=== PATIENT | female | born 1970 | race American Indian/Alaskan Native ===

== ENCOUNTER 2022-04-19 11:04 | Inpatient (IN) | payer MEDICARE ==
[2022-04-19] MEDS ORDERED: METOCLOPRAMIDE 10 MG/2 ML INJ IV ONE (11:27)
[2022-04-19] MEDS ORDERED: MORPHINE 4 MG/1 ML INJ IV ONE (11:27)
[2022-04-19] MEDS ORDERED: NITROGLYCERIN 0.4 MG TAB SUBL SL PRN (11:27)
[2022-04-19] MEDS ORDERED: PANTOPRAZOLE 40 MG INJ IV ONE (11:27)
--- NOTE | 2022-04-19 11:30 | Emergency Department Report ---
"ED General Adult HPI - General Chief complaint: Chest Pain Stated complaint: CHEST PAIN/VOMITTING Time Seen by Provider: 04/19/22 11:18 Source: patient, EMS ( EMS documentation not available at time of chart dictation ), RN notes reviewed Mode of arrival: Stretcher Limitations: Physical Limitation - History of Present Illness Initial comments: The patient was evaluated in the emergency department for symptoms described in the history of present illness. He/she was evaluated in the context of the global COVID-19 pandemic, which necessitated consideration that the patient might be at risk for infection with the virus that causes COVID-19. Institut ional protocols and algorithms that pertain to the evaluation of patients at risk for COVID-19 are in a state of rapid change based on information released by regulatory bodies including the CDC and federal and state organizations. These policies and algorithms were followed during the patient's care in the emergency department. Please note that these policies, procedures and recommendations changed on a rapid basis. Primary care doctor: Dr. Eagle Petit Nephrology: Patient does not recall. Past medical history: End-stage renal disease on hemodialysis, Wednesday, , Wednesday, stroke, residual left-sided deficits. Patient does not make urine, also has a history of diabetes, hyperlipidemia, COVID-19, GERD. This patient is a 51-year-old female who presents to the department today with a complaint of diffuse abdominal cramping, nausea and vomiting, and subsequent central and left-sided chest pain. Her symptoms are present since yesterday. The patient denies headache and neck pain. She denies dysuria she does not produce urine. She denies loss of taste and smell. She indicates that she is not . The patient has not had hematemesis or bright red blood per rectu m. -: days(s) Location: chest, abdomen Quality: aching Consistency: constant Improves with: none Worsens with: none - Related Data Allergies Allergy/AdvReac Type Severity Reaction Status Date / Time Penicillins AdvReac Unknown Verified 04/19/22 11:06 ED Review of Systems ROS: Stated complaint: CHEST PAIN/VOMITTING Other details as noted in HPI Constitutional: malaise. denies: fever Eyes: denies: eye discharge ENT: congestion Respiratory: shortness of breath Cardiovascular: chest pain Gastrointestinal: abdominal pain, nausea, vomiting. denies: hematemesis, melena, hematochezia Genitourinary: denies: dysuria Musculoskeletal: denies: back pain Neurological: weakness Psychiatric: anxiety Hematological/Lymphatic: denies: easy bleeding ED Physical Exam - General Limitations: Physical Limitation General appearance: alert, anxious, in distress - Head Head exam: Present: atraumatic, normocephalic - Eye Eye exam: Present: normal appearance, EOMI. Absent: nystagmus - ENT ENT exam: Present: normal exam, normal orophraynx, mucous membranes moist, normal external ear exam - Neck Neck exam: Present: normal inspection, full ROM. Absent: tenderness, meningismus - Respiratory Respiratory exam: Present: decreased breath sounds. Absent: respiratory distress, rhonchi, stridor - Cardiovascular Cardiovascular Exam: Present: regular rate, normal rhythm, JVD. Absent: bradycardia, tachycardia, irregular rhythm, systolic murmur, diastolic murmur, rubs, gallop - GI/Abdominal GI/Abdominal exam: Present: soft, tenderness (Mild diffuse abdominal tenderness). Absent: distended, guarding, rebound, rigid, pulsatile mass - Extremities Exam Extremities exam: Present: normal inspection (There is a left upper extremity fistula, with an appropriate thrill, without redness, pus or streaking. There is a right upper extremity nonfunctioning graft.), full ROM, pedal edema ( 2+ edema noted in the bilateral lower extremities), other (2+ pulses noted in the bilateral upper and lower extremities. There is no palpable cord. negative Homans sign. Muscular compartments are soft. The pelvis is stable.). Absent: calf tenderness - Back Exam Back exam: Present: normal inspection. Absent: tenderness, CVA tenderness (R), CVA tenderness (L), paraspinal tenderness, vertebral tenderness - Neurological Exam Neurological exam: Present: alert, motor sensory deficit (Is chronic left-sided weakness), other (There is no facial droop. The tongue is midline. EOMI. Sensation is intact to light touch in 4 extremities. 5/5 strength right arm and right leg.) - Psychiatric Psychiatric exam: Present: anxious - Skin Skin exam: Present: warm, dry, intact, normal color. Absent: rash ED Course Vital Signs 04/19/22 04/19/22 04/19/22 11:41 11:46 11:54 Temperature 99.2 F Pulse Rate 89 Respiratory 15 Rate Blood Pressure 139/76 Blood Pressure [Right] O2 Sat by Pulse 89 91 97 Oximetry 04/19/22 04/19/22 12:00 12:27 Temperature Pulse Rate 89 Respiratory 18 Rate Blood Pressure Blood Pressure 198/95 [Right] O2 Sat by Pulse 90 94 Oximetry - Reevaluation(s) Reevaluation #1: 04/19/22 12:40 Differential diagnosis, include not limited to: Obstruction, colitis, diverticulitis, appendicitis, acute coronary syndrome, pulmonary embolism, pneumonia, congestive heart failure, azotemia, uremia Assessment and plan: 51-year-old female, who does not produce urine, with acute hypoxic respiratory failure, hypertensive urgency, and a complaint of diffuse abdominal pain, with nausea and vomiting, and subsequent chest pain. Placed patient on gambling monitor, start appropriate therapies, including labetalol for hypertensive urgency, administer supplemental oxygen. She has JVD , and x-ray of the chest suggest pulmonary opacities, which I suspect are more likely secondary to fluid overload, rather than pneumonia. However, obtain CT scan of the chest abdomen pelvis to better differentiate. Treat symptoms aggressively. Have reached out to her private primary care doctor, Dr. Petit. Have requested name of her treating sock lining stitcher, in order to establish if the sock lining stitcher comes to our hospital for continuity of care. Patient also will obtain VQ scan to assess for pulmonary embolism, although I think a PE is less likely at this point in time. Patient difficult IV stick, not able to establish 20-gauge IV in the upper extremities, therefore, 20-gauge EJ is placed by myself in the left EJ without difficulty. All questions answered. 04/19/22 13:36 Dr Petit calls back Does not have the name of the private sock lining stitcher, but reports that patient goes to the following location. We will therefore discussed with our nephrology on-call. [facility] | [id number] [facility] [address] [place] [address] 04/19/22 14:55 CT scan chest suggest congestive heart failure. CT scan abdomen pelvis suggests fecal impaction with constipation. Aspirin ordered. Soapsuds enema ordered. Nephrology at the bedside to evaluate the patient. Hospital physician, Dr. Elin Savage to admit to IMS - Consultations Consultation #1: 04/19/22 13:45 Discussed the patient's history, physical, laboratory studies and imaging studies and clinical impression with nephrology on-call, Dr. Lo Smlals He will follow in consultation and arrange for hemodialysis - EJ/Peripheral Line Neck L Time Out Performed: Yes Indications: nurses unable to establis Skin Cleansed in Sterile Fashion: Yes Size: 20 Dressing Placed: Tegaderm Patient Tolerated Procedure: well ED Medical Decision Making - Lab Data Result diagrams: 04/19/22 12:35 04/19/22 12:35 Vital Signs 04/19/22 04/19/22 04/19/22 11:41 11:46 11:54 Temperature 99.2 F Pulse Rate 89 Respiratory 15 Rate Blood Pressure 139/76 Blood Pressure [Right] O2 Sat by Pulse 89 91 97 Oximetry 04/19/22 04/19/22 12:00 12:27 Temperature Pulse Rate 89 Respiratory 18 Rate Blood Pressure Blood Pressure 198/95 [Right] O2 Sat by Pulse 90 94 Oximetry Lab Results 04/19/22 04/19/22 04/19/22 Range/Units 12:35 12:35 12:35 WBC 5.8 (4.5-11.0) K/mm3 RBC 4.32 (3.65-5.03) M/mm3 Hgb 14.1 (10.1-14.3) gm/dl Hct 43.6 H (30.3-42.9) % MCV 101 H (79-97) fl MCH 33 H (28-32) pg MCHC 32 (30-34) % RDW 16.8 H (13.2-15.2) % Plt Count 82 L (140-440) K/mm3 Lymph % (Auto) 8.9 L (13.4-35.0) % [place] % (Auto) 4.7 (0.0-7.3) % Eos % (Auto) 1.3 (0.0-4.3) % Baso % (Auto) 0.6 (0.0-1.8) % Lymph # (Auto) 0.5 L (1.2-5.4) K/mm3 [place] # (Auto) 0.3 (0.0-0.8) K/mm3 Eos # (Auto) 0.1 (0.0-0.4) K/mm3 Baso # (Auto) 0.0 (0.0-0.1) K/mm3 Seg Neutrophils % 84.5 H (40.0-70.0) % Seg Neutrophils # 4.9 (1.8-7.7) K/mm3 PT 17.9 H (12.2-14.9) Sec. INR 1.28 H (0.87-1.13) D-Dimer 231.62 (0-234) ng/mlDDU Sodium 142 (137-145) mmol/L Potassium 3.3 L (3.6-5.0) mmol/L Chloride 96.9 L (98-107) mmol/L Carbon Dioxide 29 (22-30) mmol/L Anion Gap 19 mmol/L BUN 37 H (7-17) mg/dL Creatinine 5.3 H (0.6-1.2) mg/dL Estimated GFR 9 ml/min BUN/Creatinine Ratio 7 % Glucose 231 H (65-100) mg/dL Calcium 10.1 (8.4-10.2) mg/dL Magnesium 2.20 (1.7-2.3) mg/dL Total Bilirubin 0.50 (0.1-1.2) mg/dL AST 12 (5-40) units/L ALT 8 (7-56) units/L Alkaline Phosphatase 372 H (35-129) units/L Total Creatine Kinase 36 (30-135) units/L Troponin T 0.054 H (0.00-0.029) ng/mL NT-Pro-B Natriuret Pep 77591 H (0-900) pg/mL Total Protein 7.9 (6.3-8.2) g/dL Albumin 4.8 (3.9-5) g/dL Albumin/Globulin Ratio 1.5 % Triglycerides 133 (2-149) mg/dL Cholesterol 119 (50-199) mg/dL LDL Cholesterol Direct 54 (50-130) mg/dL HDL Cholesterol 42 (40-59) mg/dL Cholesterol/HDL Ratio 2.83 % - EKG Data -: EKG Interpreted by Ma EKG shows normal: sinus rhythm Rate: normal - EKG Data When compared to previous EKG there are: previous EKG unavailable 04/19/22 12:36 The EKG is interpreted at 11: 16 Sinus rhythm, rate 95 bpm. Normal axis, normal P wave axis, left ventricular hypertrophy, PVC, first-degree AV block this is an abnormal EKG. This is not a STEMI. There is no prior EKG available for comparison. - Radiology Data Radiology results: pending, report reviewed, image reviewed Chest single view INDICATION: Hypoxemia IMPRESSION: The heart is mildly en larged and there is patchy bilateral airspace disease. Signer Name: Favio Shah MD Signed: 04/19/2022 11:13 AM Workstation Name: [id number] CT CHEST WITH CONTRAST INDICATION / CLINICAL INFORMATION: cp n/v hypoxioa. TECHNIQUE: Axial CT images were obtained through the chest after IV contrast. All CT scans at this location are performed using CT dose reduction for ALARA by means of automated exposure control. COMPARISON: Chest x-ray today FINDINGS: Limited by mild respiratory motion artifact HEART: Enlarged CORONARY ARTERY CALCIFICATION: Present -- Moderate. THORACIC AORTA: Mild atherosclerotic calcification without acute abnormality. MEDIASTINUM / JONNIE: Moderate hiatal hernia No significant abnormality. PLEURA: No pleural effusion. No pneumothorax. LUNGS: Mild patchy bilateral groundglass parenchymal disease characteristic for mild CHF ADDITIONAL FINDINGS: None. UPPER ABDOMEN: No significant abnormality. SKELETAL SYSTEM: No significant abnormality. IMPRESSION: 1. Mild CHF. Signer Name: Osaes Disla MD Signed: 04/19/2022 1:35 PM Workstation Name: [id number] CT ABDOMEN AND PELVIS WITH CONTRAST INDICATION: acute cp hypoxia and acute abd pain. TECHNIQUE: Axial CT images were obtained through the abdomen and pelvis after 100 cc Omni [address] scans at this location are performed using CT dose reduction for ALARA by means of automated exposure control. COMPARISON: None available. FINDINGS: LOWER CHEST: Moderate cardiomegaly. Lung bases clear. LIVER: No significant abnormality. GALLBLADDER: No significant abnormality. BILE DUCTS: No significant abnormality. PANCREAS: No significant abnormality. SPLEEN: No significant abnormality. ADRENALS: No significant abnormality. RIGHT KIDNEY and URETER: Moderate cortical atrophy LEFT KIDNEY and URETER: Moderate cortical atrophy STOMACH and SMALL BOWEL: No significant abnormality. COLON: Large amount of solid stool noted throughout the colon with distention of rectal vault measuring 8 cm with rectal wall thickening and perirectal inflammation characteristic for fecal impaction with stercoral co litis. APPENDIX: No significant abnormality. PERITONEUM: No free fluid. No free air. No fluid collection. LYMPH NODES: No significant adenopathy. AORTA and ARTERIES: Moderate diffuse Monckeberg type vascular calcifications characteristic for diabetes mellitus. IVC and VEINS: No significant abnormality. URINARY BLADDER: No significant abnormality. REPRODUCTIVE ORGANS: No significant abnormality. ADDITIONAL FINDINGS: Peritoneal dialysis catheter coiled within right lower quadrant of abdomen. SKELETAL SYSTEM: No significant abnormality. IMPRESSION: 1. Severe constipation with fecal impaction and stroke oral colitis. 2. Moderate bilateral renal cortical atrophy characteristic for chronic renal disease with peritoneal dialysis catheter noted Signer Name: Oseas Disla MD Signed: 04/19/2022 1:38 PM Workstation Name: [id number] NUCLEAR MEDICINE PERFUSION LUNG SCAN INDICATION: dyspnea hypoxia cp. TECHNIQUE: 5.5 mCi of Tc-99m MAA were given by IV. COMPARISON: Chest radiograph dated today. FINDINGS: PERFUSION: No significant perfusion defects. ADDITIONAL FINDINGS: None. IMPRESSION: 1. Low probability for pulmonary embolism. Signer Name: Oseas Disla MD Signed: 04/19/2022 1:50 PM Workstation Name: [id number] Critical Care Time: Yes Critical care time in (mins) excluding proc time.: 35 Critical care attestation.: If time is entered above; I have spent that time in minutes in the direct care of this critically ill patient, excluding procedure time. ED Disposition Clinical Impression: Acute chest pain, Acute abdominal pain, Acute respiratory failure with hypoxia, End-stage renal disease on hemodialysis, Hypertensive urgency Disposition: 09 ADMITTED INPATIENT Is pt being admited?: Yes Does the pt Need Aspirin: No Condition: Fair Instructions: Chest Pain (ED) Heart Score - HEART Score History: Slightly suspicious EKG: Non-specific Age: 45-65 Risk factors: > 3 risk factors or hx of atherosclerotic disease Troponin: 1-3x normal limit HEART Score: 5 - EKG Read Time Time EKG Completed: 11:30 EKG Read Time: 11:30 - Critical Actions Critical Actions: 4-6 pts:12-16.6% risk of adverse cardiac event. Should be admitted"
--- NOTE | 2022-04-19 12:17 | XRay Report ---
Chest single view INDICATION: Hypoxemia IMPRESSION: The heart is mildly enlarged and there is patchy bilateral airspace disease. Signer Name: Favio Shah MD Signed: 04/19/2022 12:13 PM Workstation Name: [email or web address]
[2022-04-19 13:01] LABS: Basophils % (Auto) 0.6 % (0.0-1.8); Eosinophils # (Auto) 0.1 K/mm3 (0.0-0.4); Eosinophils % (Auto) 1.3 % (0.0-4.3); Hematocrit 43.6 % (30.3-42.9); Hemoglobin 14.1 gm/dl (10.1-14.3); Lymphocytes # (Auto) 0.5 K/mm3 (1.2-5.4); Lymphocytes % (Auto) 8.9 % (13.4-35.0); Mean Corpuscular HGB Conc 32 % (30-34); Mean Corpuscular Volume 101 fl (79-97); Monocytes # (Auto) 0.3 K/mm3 (0.0-0.8); Monocytes % (Auto) 4.7 % (0.0-7.3); Red Blood Count 4.32 M/mm3 (3.65-5.03); Red Cell Distribution Width 16.8 % (13.2-15.2)
[2022-04-19 13:04] LABS: Platelet Count 82 K/mm3 (140-440)
[2022-04-19 13:09] LABS: INR 1.28 (0.87-1.13)
[2022-04-19 13:18] LABS: Albumin 4.8 g/dL (3.9-5); Calcium 10.1 mg/dL (8.4-10.2)
[2022-04-19 13:37] LABS: Chol/HDL Ratio 2.83 %
--- NOTE | 2022-04-19 14:40 | Cat Scan Report ---
CT CHEST WITH CONTRAST INDICATION / CLINICAL INFORMATION: cp n/v hypoxioa. TECHNIQUE: Axial CT images were obtained through the chest after IV contrast. All CT scans at this [facility] are performed using CT dose reduction for ALARA by means of automated exposure control. COMPARISON: Chest x-ray today FINDINGS: Limited by mild respiratory motion artifact HEART: Enlarged CORONARY ARTERY CALCIFICATION: Present -- Moderate. THORACIC AORTA: Mild atherosclerotic calcification without acute abnormality. MEDIASTINUM / JONNIE: Moderate hiatal hernia No significant abnormality. PLEURA: No pleural effusion. No pneumothorax. LUNGS: Mild patchy bilateral groundglass parenchymal disease characteristic for mild CHF ADDITIONAL FINDINGS: None. UPPER ABDOMEN: No significant abnormality. SKELETAL SYSTEM: No significant abnormality. IMPRESSION: 1. Mild CHF. Signer Name: Oseas Disla MD Signed: 04/19/2022 2:35 PM Workstation Name: [id number]
--- NOTE | 2022-04-19 14:43 | Cat Scan Report ---
CT ABDOMEN AND PELVIS WITH CONTRAST INDICATION: acute cp hypoxia and acute abd pain. TECHNIQUE: Axial CT images were obtained through the abdomen and pelvis after 100 cc Omni [address] scans at this location are performed using CT dose reduction for ALARA by means of automated expos ure control. COMPARISON: None available. FINDINGS: LOWER CHEST: Moderate cardiomegaly. Lung bases clear. LIVER: No significant abnormality. GALLBLADDER: No significant abnormality. BILE DUCTS: No significant abnormality. PANCREAS: No significant abnormality. SPLEEN: No significant abnormality. ADRENALS: No significant abnormality. RIGHT KIDNEY and URETER: Moderate cortical atrophy LEFT KIDNEY and URETER: Moderate cortical atrophy STOMACH and SMALL BOWEL: No significant abnormality. COLON: Large amount of solid stool noted throughout the colon with distention of rectal vault measuri ng 8 cm with rectal wall thickening and perirectal inflammation characteristic for fecal impaction wi th stercoral colitis. APPENDIX: No significant abnormality. PERITONEUM: No free fluid. No free air. No fluid collection. LYMPH NODES: No significant adenopathy. AORTA and ARTERIES: Moderate diffuse Monckeberg type vascular calcifications characteristic for diabe antonia mellitus. IVC and VEINS: No significant abnormality. URINARY BLADDER: No significant abnormality. REPRODUCTIVE ORGANS: No significant abnormality. ADDITIONAL FINDINGS: Peritoneal dialysis catheter coiled within right lower quadrant of abdomen. SKELETAL SYSTEM: No significant abnormality. IMPRESSION: 1. Severe constipation with fecal impaction and stroke oral colitis. 2. Moderate bilateral renal cortical atrophy characteristic for chronic renal disease with peritoneal dialysis catheter noted Signer Name: Oseas Disla MD Signed: 04/19/2022 2:38 PM Workstation Name: [id number]
[2022-04-19] MEDS ORDERED: ASPIRIN 81 MG TAB CHEW PO ONE (14:55)
--- NOTE | 2022-04-19 14:55 | Nuclear Medicine Report ---
NUCLEAR MEDICINE PERFUSION LUNG SCAN INDICATION: dyspnea hypoxia cp. TECHNIQUE: 5.5 mCi of Tc-99m MAA were given by IV. COMPARISON: Chest radiograph dated today. FINDINGS: PERFUSION: No significant perfusion defects. ADDITIONAL FINDINGS: None. IMPRESSION: 1. Low probability for pulmonary embolism. Signer Name: Oseas Disla MD Signed: 04/19/2022 2:50 PM Workstation Name: [id number]
--- NOTE | 2022-04-19 15:21 | Consultation ---
History of Present Illness - Reason for Consult Consult date: 04/19/22 end stage renal disease Requesting physician: JODIE WHITE - History of Present Illness 51-year-old lady with longstanding history of type 2 diabetes mellitus, hypertension, previous endovascular stent and end-stage renal disease on hemodialysis on a Wednesday, and Wednesday schedule. Patient received dialysis at [facility]. She does not know the name of the cash processing specialist. She states she did go for dialysis yesterday and it was uneventful. She presents on account of abdominal cramping, nausea and vomiting with left-sided chest pain. No palpitations or dizziness. No diarrhea. No fever or chills. In the ER she had a CT scan of the chest which showed mild groundglass opacities consistent with pulmonary edema. Perfusion scan shows low probability for pulmonary embolism. CT of the abdomen showed moderate bilateral renal cortical atrophy with severe constipation. Past History Past Medical History: diabetes, ESRD, GERD, hypertension, hyperlipidemia, stroke Past Surgical History: Other (AV access placement, cataract extraction) Social history: denies: smoking, alcohol abuse, prescription drug abuse Family history: no significant family history Medications and Allergies Allergies Allergy/AdvReac Type Severity Reaction Status Date / Time Penicillins AdvReac Unknown Verified 04/19/22 11:06 Active Meds: Active Medications Nitroglycerin (Nitroglycerin 0.4 Mg Tab Subl) 0.4 mg SL .Q5MIN PRN PRN Reason: Chest Pain Review of Systems All systems: negative (As noted in history of present illness.) Exam - Vital Signs Vital signs: Vital Signs Pulse Ox 89 04/19/22 11:41 - Physical Exam Narrative exam: Middle-aged -Polish female lying in bed in no acute respiratory distress HEENT: NCAT, pink oral mucous membrane Neck: Supple, no venous distention CVS: S1S2 RRR with no murmur, rub or gallop Chest: Clear to auscultation Abdomen: Protuberant, soft, nontender, no organomegaly, bowel sounds are present Extremities: No edema Genitourinary deferred Skin warm and dry Neuro: Awake, alert, hemiparesis Results - Lab Results 04/19/22 12:35 04/19/22 12:35 Most recent lab results Calcium 10.1 mg/dL (8.4-10.2) 04/19/22 12:35 Magnesium 2.20 mg/dL (1.7-2.3) 04/19/22 12:35 Assessment and Plan - Patient Problems (1) Acute respiratory failure with hypoxia Current Visit: Yes Status: Acute Plan to address problem: Acute respiratory failure secondary to acute pulmonary edema. Respiratory status much improved. Patient is on 2 L nasal cannula and is comfortable. We will dialyze patient first thing in the morning. (2) Acute chest pain Current Visit: Yes Status: Acute Plan to address problem: Management by cardiology/primary attending (3) Hypertensive chronic kidney disease with stage 5 chronic kidney disease or end stage renal disease Current Visit: Yes Status: Acute Plan to address problem: Resume oral antihypertensive medications and follow-up blood pressure (4) Type 2 diabetes mellitus with diabetic nephropathy Current Visit: Yes Status: Acute Plan to address problem: Blood sugar management by primary attending (5) End-stage renal disease on hemodialysis Current Visit: Yes Status: Acute Plan to address problem: Hemodialysis in the morning and then continue on a Wednesday, Wednesday and Wednesday schedule.
[2022-04-19] MEDS ORDERED: SODIUM CHLORIDE 0.9% 100 ML IV PRN (15:28)
[2022-04-19] MEDS ORDERED: METOCLOPRAMIDE 10 MG/2 ML INJ IV PRN (16:59)
[2022-04-19] MEDS ORDERED: ONDANSETRON 4 MG/2 ML INJ IV PRN (16:59)
[2022-04-19] MEDS ORDERED: ACETAMINOPHEN 325 MG TAB PO PRN (16:59)
[2022-04-19] MEDS ORDERED: oxyCODONE /ACETAMINOPHEN 5-325MG TAB PO PRN (16:59)
[2022-04-19] MEDS ORDERED: HYDROmorphone 0.5 MG/0.5 ML INJ IV PRN (16:59)
[2022-04-19] MEDS ORDERED: NIFEdipine XL 90 MG TAB PO SCH (17:00)
[2022-04-19] MEDS ORDERED: VALSARTAN 160MG TAB PO SCH (17:00)
[2022-04-19] MEDS: carvediloL 12.5 MG TAB PO SCH ×2 (17:17→21:28)
--- NOTE | 2022-04-19 17:18 | History and Physical Report ---
History of Present Illness Date of examination: 04/19/22 Date of admission: 04/19/2020 Chief complaint: Increasing shortness of breath History of present illness: 51-year-old female with history of end-stage renal disease, hypertension comes in for multiple complaints including diffuse abdominal Pain nausea vomiting and epigastric pain. Mild retrosternal chest pain. No diaphoresis. Patient had dialysis yesterday. Has been drinking liquids excessively. Patient also has a history of diabetes and hyperlipidemia and COVID-19 and GERD. Patient has orthopnea. Muscle cramps. Patient is thrice weekly hemodialysis schedule starting on Wednesday and Saturdays. Review of Systems ROS: Stated complaint: CHEST PAIN/VOMITTING Other details as noted in HPI Constitutional: malaise. denies: fever Eyes: denies: eye discharge ENT: congestion Respiratory: shortness of breath Cardiovascular: chest pain Gastrointestinal: abdominal pain, nausea, vomiting. denies: hematemesis, melena, hematochezia Genitourinary: denies: dysuria Musculoskeletal: denies: back pain Neurological: weakness Psychiatric: anxiety Hematological/Lymphatic: denies: easy bleeding Past History Past Medical History: diabetes, ESRD, GERD, hypertension, hyperlipidemia, stroke Past Surgical History: Other (AV access placement, cataract extraction) Social history: lives with family, full code. denies: smoking, alcohol abuse, prescription drug abuse Family history: hypertension Medications and Allergies Allergies Allergy/AdvReac Type Severity Reaction Status Date / Time Penicillins AdvReac Unknown Verified 04/19/22 11:06 Active Meds: Active Medications Sodium Chloride (Nacl 0.9%) 100 mls @ 999 mls/hr IV LYDIA PRN PRN Reason: Hypotension Nitroglycerin (Nitroglycerin 0.4 Mg Tab Subl) 0.4 mg SL .Q5MIN PRN PRN Reason: Chest Pain Review of Systems All systems: negative Exam - Constitutional Vitals: Temp Pulse Resp BP Pulse Ox 99.2 F 90 16 241/112 97 04/19/22 11:54 04/19/22 15:44 04/19/22 15:19 04/19/22 15:44 04/19/22 15:19 General appearance: Present: no acute distress, well-nourished - EENT Eyes: Present: PERRL ENT: hearing intact, clear oral mucosa - Neck Neck: Present: supple, normal ROM - Respiratory Respiratory effort: normal Respiratory: bilateral: CTA - Cardiovascular Heart rate: 78 Rhythm: regular Heart Sounds: Present: S1 & S2. Absent: rub, click - Extremities Extremities: pulses symmetrical, No edema Peripheral Pulses: within normal limits - Abdominal General gastrointestinal: Present: soft, non-tender, non-distended, normal bowel sounds Female genitourinary: Present: normal - Integumentary Integumentary: Present: clear, warm, dry - Musculoskeletal Musculoskeletal: gait normal, strength equal bilaterally - Psychiatric Psychiatric: appropriate mood/affect, intact judgment & insight - Neurologic Neurologic: CNII-XII intact, moves all extremities HEART Score - HEART Score EKG: Non-specific Age: 45-65 Risk factors: > 3 risk factors or hx of atherosclerotic disease Troponin: Troponin T 0.054 ng/mL (0.00-0.029) H 04/19/22 12:35 Troponin: 1-3x normal limit - Critical Actions Critical Actions: 4-6 pts:12-16.6% risk of adverse cardiac event. Should be admitted Results - Labs CBC & Chem 7: 04/20/22 04:38 04/20/22 04:38 Labs: Laboratory Last Values WBC 5.8 K/mm3 (4.5-11.0) 04/19/22 12:35 RBC 4.32 M/mm3 (3.65-5.03) 04/19/22 12:35 Hgb 14.1 gm/dl (10.1-14.3) 04/19/22 12:35 Hct 43.6 % (30.3-42.9) H 04/19/22 12:35 MCV 101 fl (79-97) H 04/19/22 12:35 MCH 33 pg (28-32) H 04/19/22 12:35 MCHC 32 % (30-34) 04/19/22 12:35 RDW 16.8 % (13.2-15.2) H 04/19/22 12:35 Plt Count 82 K/mm3 (140-440) L 04/19/22 12:35 Lymph % (Auto) 8.9 % (13.4-35.0) L 04/19/22 12:35 [place] % (Auto) 4.7 % (0.0-7.3) 04/19/22 12:35 Eos % (Auto) 1.3 % (0.0-4.3) 04/19/22 12:35 Baso % (Auto) 0.6 % (0.0-1.8) 04/19/22 12:35 Lymph # (Auto) 0.5 K/mm3 (1.2-5.4) L 04/19/22 12:35 [place] # (Auto) 0.3 K/mm3 (0.0-0.8) 04/19/22 12:35 Eos # (Auto) 0.1 K/mm3 (0.0-0.4) 04/19/22 12:35 Baso # (Auto) 0.0 K/mm3 (0.0-0.1) 04/19/22 12:35 Seg Neutrophils % 84.5 % (40.0-70.0) H 04/19/22 12:35 Seg Neutrophils # 4.9 K/mm3 (1.8-7.7) 04/19/22 12:35 PT 17.9 Sec. (12.2-14.9) H 04/19/22 12:35 INR 1.28 (0.87-1.13) H 04/19/22 12:35 D-Dimer 231.62 ng/mlDDU (0-234) 04/19/22 12:35 Sodium 142 mmol/L (137-145) 04/19/22 12:35 Potassium 3.3 mmol/L (3.6-5.0) L 04/19/22 12:35 Chloride 96.9 mmol/L (98-107) L 04/19/22 12:35 Carbon Dioxide 29 mmol/L (22-30) 04/19/22 12:35 Anion Gap 19 mmol/L 04/19/22 12:35 BUN 37 mg/dL (7-17) H 04/19/22 12:35 Creatinine 5.3 mg/dL (0.6-1.2) H 04/19/22 12:35 Estimated GFR 9 ml/min 04/19/22 12:35 BUN/Creatinine Ratio 7 % 04/19/22 12:35 Glucose 231 mg/dL (65-100) H 04/19/22 12:35 Calcium 10.1 mg/dL (8.4-10.2) 04/19/22 12:35 Magnesium 2.20 mg/dL (1.7-2.3) 04/19/22 12:35 Total Bilirubin 0.50 mg/dL (0.1-1.2) 04/19/22 12:35 AST 12 units/L (5-40) 04/19/22 12:35 ALT 8 units/L (7-56) 04/19/22 12:35 Alkaline Phosphatase 372 units/L (35-129) H 04/19/22 12:35 Total Creatine Kinase 36 units/L (30-135) 04/19/22 12:35 Troponin T 0.054 ng/mL (0.00-0.029) H 04/19/22 12:35 NT-Pro-B Natriuret Pep 24508 pg/mL (0-900) H 04/19/22 12:35 Total Protein 7.9 g/dL (6.3-8.2) 04/19/22 12:35 Albumin 4.8 g/dL (3.9-5) 04/19/22 12:35 Albumin/Globulin Ratio 1.5 % 04/19/22 12:35 Triglycerides 133 mg/dL (2-149) 04/19/22 12:35 Cholesterol 119 mg/dL (50-199) 04/19/22 12:35 LDL Cholesterol Direct 54 mg/dL (50-130) 04/19/22 12:35 HDL Cholesterol 42 mg/dL (40-59) 04/19/22 12:35 Cholesterol/HDL Ratio 2.83 % 04/19/22 12:35 Short CBC 04/19/22 04/20/22 Range/Units 12:35 04:38 WBC 5.8 5.5 (4.5-11.0) K/mm3 Hgb 14.1 14.1 (10.1-14.3) gm/dl Hct 43.6 H 43.7 H (30.3-42.9) % Plt Count 82 L 91 L (140-440) K/mm3 BMP 04/19/22 04/20/22 12:35 04:38 Sodium 142 140 Potassium 3.3 L 4.1 D Chloride 96.9 L 94.8 L Carbon Dioxide 29 27 BUN 37 H 50 H Creatinine 5.3 H 6.7 H Glucose 231 H 191 H Calcium 10.1 10.2 Cardiac Enzymes 04/19/22 Range/Units 12:35 Total Creatine Kinase 36 (30-135) units/L Troponin T 0.054 H (0.00-0.029) ng/mL Liver Function 04/19/22 04/20/22 Range/Units 12:35 04:38 Total Bilirubin 0.50 0.50 (0.1-1.2) mg/dL AST 12 14 (5-40) units/L ALT 8 9 (7-56) units/L Alkaline Phosphatase 372 H 384 H (35-129) units/L Albumin 4.8 4.6 (3.9-5) g/dL Assessment and Plan Advance Directives: Yes (Full code) VTE prophylaxis?: Chemical Plan of care discussed with patient/family: Yes - Patient Problems (1) Hypertensive emergency Current Visit: Yes Status: Acute Plan to address problem: Patient initiated on valsartan 160 every 12, Procardia XL 90 mg and Coreg. Also IV hydralazine 10 mg every 3 hours as needed. Patient does not need Cardene drip at this point. Patient is noncompliant. Compliance issues counseled. (2) Volume overload Current Visit: Yes Status: Acute Plan to address problem: Needs emergent hemodialysis for increased ultrafiltration. Nephrology consulted. (3) Elevated brain natriuretic peptide (BNP) level Current Visit: Yes Status: Acute Plan to address problem: Secondary to volume overload (4) End-stage renal disease on hemodialysis Current Visit: Yes Status: Acute Plan to address problem: Continue hemodialysis as per schedule. Nephrology consulted. (5) Elevated troponin Current Visit: Yes Status: Acute Plan to address problem: NSTEMI II Troponin leak (6) DVT prophylaxis Current Visit: Yes Status: Acute Plan to address problem: On anticoagulation and GI prophylaxis (7) Advance care planning Current Visit: Yes Status: Acute Plan to address problem: Disease education conducted, care plan discussed, diagnosis discussed. Patient is full code. Patient acknowledges understanding and agreement with care plan. +30 minutes
[2022-04-19] MEDS: HEPARIN 5,000 UNIT/1 ML VIAL SUB-Q SCH (21:28)
[2022-04-19] MEDS: VALSARTAN 160MG TAB PO SCH (21:28)
[2022-04-20 05:11] LABS: Basophils % (Auto) 0.7 % (0.0-1.8); Eosinophils % (Auto) 0.4 % (0.0-4.3); Hematocrit 43.7 % (30.3-42.9); Hemoglobin 14.1 gm/dl (10.1-14.3); Lymphocytes # (Auto) 0.7 K/mm3 (1.2-5.4); Lymphocytes % (Auto) 13.1 % (13.4-35.0); Mean Corpuscular HGB Conc 32 % (30-34); Mean Corpuscular Volume 101 fl (79-97); Monocytes # (Auto) 0.4 K/mm3 (0.0-0.8); Monocytes % (Auto) 7.1 % (0.0-7.3); Red Blood Count 4.33 M/mm3 (3.65-5.03); Red Cell Distribution Width 16.9 % (13.2-15.2)
[2022-04-20] MEDS: hydrALAZINE 20 MG/1 ML INJ IV PRN ×2 (05:13→11:30)
[2022-04-20 05:15] LABS: Platelet Count 91 K/mm3 (140-440)
[2022-04-20 05:36] LABS: Albumin 4.6 g/dL (3.9-5); Calcium 10.2 mg/dL (8.4-10.2)
[2022-04-20] MEDS ORDERED: METOCLOPRAMIDE 10 MG/2 ML INJ IV PRN (08:00)
--- NOTE | 2022-04-20 08:33 | Progress Note ---
Assessment and Plan - Patient Problems (1) Volume overload Current Visit: Yes Status: Acute Plan to address problem: Volume optimization to ultrafiltration during dialysis treatments. Counseled patient on the importance of low-sodium diet and appropriate fluid restrictions. (2) End-stage renal disease on hemodialysis Current Visit: Yes Status: Chronic Plan to address problem: Plan for hemodialysis on a Wednesday/Wednesday/Wednesday schedule. 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 (4) Type 2 diabetes mellitus with diabetic nephropathy Current Visit: Yes Status: Chronic Plan to address problem: Diabetes managed per primary attending. Subjective Date of service: 04/20/22 Interval history: No acute changes overnight. Objective - Vital Signs Vital signs: Vital Signs - 12hr 04/19/22 04/20/22 22:34 02:10 Temperature 98.2 F 98.7 F Pulse Rate 86 87 Respiratory 18 18 Rate Blood Pressure 203/95 190/95 [Right] O2 Sat by Pulse 100 100 Oximetry - General Appearance General appearance: well-developed EENT: ATNC Neck: no JVD Respiratory: Present: Clear to Ascultation Cardiology: regular Gastrointestinal: normal Integumentary: no rash Neurologic: no focal deficit Musculoskeletal: deferred Psychiatric: cooperative - Lab 04/20/22 04:38 04/20/22 04:38 Most recent lab results Calcium 10.2 mg/dL (8.4-10.2) 04/20/22 04:38 Magnesium 2.20 mg/dL (1.7-2.3) 04/19/22 12:35 - Imaging Chest x-ray: pending - Allied health notes Allied health notes reviewed: nursing Medications & Allergies - Medications Allergies/Adverse Reactions: Allergies Penicillins Adverse Reaction (Verified 04/19/22 11:06) Unknown Active Medications: Generic Name Dose Route Start Last Admin Trade Name Freq PRN Reason Stop Dose Admin Acetaminophen 650 mg 04/19/22 16:59 Acetaminophen 325 Mg Tab PO Q4H PRN Pain MILD(1-3)/Fever >100.5/ARELLANO Carvedilol 12.5 mg 04/19/22 17:00 04/19/22 21:28 Carvedilol 12.5 Mg Tab PO 12.5 mg Q12HR SAM Administration Heparin Sodium (Porcine) 5,000 unit 04/19/22 22:00 04/19/22 21:28 Heparin 5,000 Unit/1 Ml Vial SUB-Q 5,000 unit Q12HR SAM Administration Hydralazine HCl 10 mg 04/20/22 02:30 04/20/22 05:13 Hydralazine 20 Mg/1 Ml Inj IV 10 mg Q4H PRN Administration Hypertension Hydromorphone HCl 0.5 mg 04/19/22 16:59 Hydromorphone 0.5 Mg/0.5 Ml Inj IV Q3H PRN Pain , Severe (7-10) Sodium Chloride 100 mls @ 999 mls/hr 04/19/22 15:28 Nacl 0.9% IV LYDIA PRN Hypotension Metoclopramide HCl 5 mg 04/20/22 08:00 Metoclopramide 10 Mg/2 Ml Inj IV Q8H PRN Nausea And Vomiting Nifedipine 90 mg 04/19/22 17:00 04/19/22 17:17 Nifedipine Xl 90 Mg Tab PO 90 mg Q24H SAM Administration Nitroglycerin 0.4 mg 04/19/22 11:27 04/19/22 19:35 Nitroglycerin 0.4 Mg Tab Subl SL 0.4 mg .Q5MIN PRN Administration Chest Pain Ondansetron HCl 4 mg 04/19/22 16:59 Ondansetron 4 Mg/2 Ml Inj IV Q3H PRN Nausea And Vomiting Oxycodone/Acetaminophen 1 tab 04/19/22 16:59 Oxycodone /Acetaminophen 5-325mg Tab PO Q6H PRN Pain, Moderate (4-6) Sodium Chloride 10 ml 04/19/22 22:00 04/19/22 21:28 Sodium Chloride 0.9% 10 Ml Flush Syringe IV 10 ml BID SAM Administration Sodium Chloride 10 ml 04/19/22 16:59 Sodium Chloride 0.9% 10 Ml Flush Syringe IV PRN PRN LINE FLUSH Valsartan 160 mg 04/19/22 22:00 04/19/22 21:28 Valsartan 160mg Tab PO 160 mg Q12HR SAM Administration
[2022-04-20] MEDS: HEPARIN 5,000 UNIT/1 ML VIAL SUB-Q SCH ×2 (09:12→22:42)
[2022-04-20] MEDS: carvediloL 12.5 MG TAB PO SCH ×2 (09:13→22:41)
[2022-04-20] MEDS: VALSARTAN 160MG TAB PO SCH ×2 (09:13→22:42)
[2022-04-20] MEDS: NIFEdipine XL 90 MG TAB PO SCH ×2 (09:24→22:41)
--- NOTE | 2022-04-20 10:47 | Progress Note ---
Assessment and Plan Assessment and plan: 51-year-old female with significant past medical history of ESRD, hypertension, diabetes mellitus type 2, hyperlipidemia, COVID-19 and GERD presented through the emergency department with complaints of abdominal pain. Acute colitis. Accelerated hypertension Volume overload ESRD Elevated troponin 04/20/2022. CT scan revealed severe constipation with fecal impaction and colitis. Patient also with moderate bilateral renal cortical atrophy characteristic for chronic renal disease. We will start antibiotics for possible infectious etiology. Consult GI for further evaluation. Check stool studies. VQ scan negative for PE. Elevated troponin likely secondary to ESRD. Patient currently denying any chest pain. Consider cardiology consultation History Interval history: No new issues overnight. Hospitalist Physical - Constitutional Vitals: Temp Pulse Resp BP Pulse Ox 98.7 F 85 20 160/83 100 04/20/22 02:10 04/20/22 09:13 04/20/22 09:10 04/20/22 09:13 04/20/22 09:51 General appearance: Present: no acute distress, well-nourished - EENT Eyes: Present: PERRL, EOM intact ENT: hearing intact, clear oral mucosa, dentition normal - Neck Neck: Present: supple, normal ROM - Respiratory Respiratory effort: normal Respiratory: bilateral: CTA - Cardiovascular Rhythm: regular Heart Sounds: Present: S1 & S2. Absent: gallop, rub - Extremities Extremities: no ischemia, No edema, Full ROM - Abdominal General gastrointestinal: soft, non-tender, non-distended, normal bowel sounds - Integumentary Integumentary: Present: clear, warm, dry - Neurologic Neurologic: CNII-XII intact, moves all extremities HEART Score - HEART Score EKG: Non-specific Age: 45-65 Risk factors: > 3 risk factors or hx of atherosclerotic disease Troponin: Troponin T 0.054 ng/mL (0.00-0.029) H 04/19/22 12:35 Troponin: 1-3x normal limit - Critical Actions Critical Actions: 4-6 pts:12-16.6% risk of adverse cardiac event. Should be admitted Results - Labs CBC & Chem 7: 04/20/22 04:38 04/20/22 04:38 Labs: Laboratory Last Values WBC 5.5 K/mm3 (4.5-11.0) 04/20/22 04:38 RBC 4.33 M/mm3 (3.65-5.03) 04/20/22 04:38 Hgb 14.1 gm/dl (10.1-14.3) 04/20/22 04:38 Hct 43.7 % (30.3-42.9) H 04/20/22 04:38 MCV 101 fl (79-97) H 04/20/22 04:38 MCH 33 pg (28-32) H 04/20/22 04:38 MCHC 32 % (30-34) 04/20/22 04:38 RDW 16.9 % (13.2-15.2) H 04/20/22 04:38 Plt Count 91 K/mm3 (140-440) L 04/20/22 04:38 Lymph % (Auto) 13.1 % (13.4-35.0) L 04/20/22 04:38 [place] % (Auto) 7.1 % (0.0-7.3) 04/20/22 04:38 Eos % (Auto) 0.4 % (0.0-4.3) 04/20/22 04:38 Baso % (Auto) 0.7 % (0.0-1.8) 04/20/22 04:38 Lymph # (Auto) 0.7 K/mm3 (1.2-5.4) L 04/20/22 04:38 [place] # (Auto) 0.4 K/mm3 (0.0-0.8) 04/20/22 04:38 Eos # (Auto) 0.0 K/mm3 (0.0-0.4) 04/20/22 04:38 Baso # (Auto) 0.0 K/mm3 (0.0-0.1) 04/20/22 04:38 Seg Neutrophils % 78.7 % (40.0-70.0) H 04/20/22 04:38 Seg Neutrophils # 4.3 K/mm3 (1.8-7.7) 04/20/22 04:38 PT 17.9 Sec. (12.2-14.9) H 04/19/22 12:35 INR 1.28 (0.87-1.13) H 04/19/22 12:35 D-Dimer 231.62 ng/mlDDU (0-234) 04/19/22 12:35 Sodium 140 mmol/L (137-145) 04/20/22 04:38 Potassium 4.1 mmol/L (3.6-5.0) D 04/20/22 04:38 Chloride 94.8 mmol/L (98-107) L 04/20/22 04:38 Carbon Dioxide 27 mmol/L (22-30) 04/20/22 04:38 Anion Gap 22 mmol/L 04/20/22 04:38 BUN 50 mg/dL (7-17) H 04/20/22 04:38 Creatinine 6.7 mg/dL (0.6-1.2) H 04/20/22 04:38 Estimated GFR 8 ml/min 04/20/22 04:38 BUN/Creatinine Ratio 7 % 04/20/22 04:38 Glucose 191 mg/dL (65-100) H 04/20/22 04:38 POC Glucose 187 mg/dL (70-105) H 04/20/22 08:30 Calcium 10.2 mg/dL (8.4-10.2) 04/20/22 04:38 Magnesium 2.20 mg/dL (1.7-2.3) 04/19/22 12:35 Total Bilirubin 0.50 mg/dL (0.1-1.2) 04/20/22 04:38 AST 14 units/L (5-40) 04/20/22 04:38 ALT 9 units/L (7-56) 04/20/22 04:38 Alkaline Phosphatase 384 units/L (35-129) H 04/20/22 04:38 Total Creatine Kinase 36 units/L (30-135) 04/19/22 12:35 Troponin T 0.054 ng/mL (0.00-0.029) H 04/19/22 12:35 NT-Pro-B Natriuret Pep 09473 pg/mL (0-900) H 04/19/22 12:35 Total Protein 8.0 g/dL (6.3-8.2) 04/20/22 04:38 Albumin 4.6 g/dL (3.9-5) 04/20/22 04:38 Albumin/Globulin Ratio 1.4 % 04/20/22 04:38 Triglycerides 133 mg/dL (2-149) 04/19/22 12:35 Cholesterol 119 mg/dL (50-199) 04/19/22 12:35 LDL Cholesterol Direct 54 mg/dL (50-130) 04/19/22 12:35 HDL Cholesterol 42 mg/dL (40-59) 04/19/22 12:35 Cholesterol/HDL Ratio 2.83 % 04/19/22 12:35 SARS-CoV-2 (PCR) Negative (Negative) 04/19/22 15:35 [place]/IV: Voiding Method Incontinent Active Medications - Current Medications Current Medications: Generic Name Dose Route Start Last Admin Trade Name Freq PRN Reason Stop Dose Admin Acetaminophen 650 mg 04/19/22 16:59 Acetaminophen 325 Mg Tab PO Q4H PRN Pain MILD(1-3)/Fever >100.5/ARELLANO Carvedilol 12.5 mg 04/19/22 17:00 04/20/22 09:13 Carvedilol 12.5 Mg Tab PO 12.5 mg Q12HR SAM Administration Heparin Sodium (Porcine) 5,000 unit 04/19/22 22:00 04/20/22 09:12 Heparin 5,000 Unit/1 Ml Vial SUB-Q 5,000 unit Q12HR SAM Administration Hydralazine HCl 10 mg 04/20/22 02:30 04/20/22 05:13 Hydralazine 20 Mg/1 Ml Inj IV 10 mg Q4H PRN Administration Hypertension Hydromorphone HCl 0.5 mg 04/19/22 16:59 Hydromorphone 0.5 Mg/0.5 Ml Inj IV Q3H PRN Pain , Severe (7-10) Sodium Chloride 100 mls @ 999 mls/hr 04/19/22 15:28 Nacl 0.9% IV LYDIA PRN Hypotension Metoclopramide HCl 5 mg 04/20/22 08:00 Metoclopramide 10 Mg/2 Ml Inj IV Q8H PRN Nausea And Vomiting Nifedipine 90 mg 04/20/22 10:00 04/20/22 09:24 Nifedipine Xl 90 Mg Tab PO 90 mg Q12HR SAM Administration Nitroglycerin 0.4 mg 04/19/22 11:27 04/19/22 19:35 Nitroglycerin 0.4 Mg Tab Subl SL 0.4 mg .Q5MIN PRN Administration Chest Pain Ondansetron HCl 4 mg 04/19/22 16:59 Ondansetron 4 Mg/2 Ml Inj IV Q3H PRN Nausea And Vomiting Oxycodone/Acetaminophen 1 tab 04/19/22 16:59 Oxycodone /Acetaminophen 5-325mg Tab PO Q6H PRN Pain, Moderate (4-6) Sodium Chloride 10 ml 04/19/22 22:00 04/20/22 09:14 Sodium Chloride 0.9% 10 Ml Flush Syringe IV 10 ml BID SAM Administration Sodium Chloride 10 ml 04/19/22 16:59 Sodium Chloride 0.9% 10 Ml Flush Syringe IV PRN PRN LINE FLUSH Valsartan 160 mg 04/19/22 22:00 04/20/22 09:13 Valsartan 160mg Tab PO 160 mg Q12HR SAM Administration
--- NOTE | 2022-04-20 10:48 | Electrocardiograph Report ---
[facility] Test Date: 2022-04-19 Test Time: 11:16:28 Pat Name: TRUDI BECKER Department: Room: A374 1 Gender: F Refrigerating Engineer: TJ : 1970 Requested By: JODIE WHITE Order Number: [id number] Reading MD: Jose Raul Rodriguez Measurements Intervals [place] Rate: 95 P: 52 WV: 201 QRS: 35 QRSD: 91 T: 42 QT: 388 QTc: 488 Interpretive Statements Sinus rhythm Multiple premature complexes, vent & supraven Borderline prolonged [place] interval Left atrial enlargement Left ventricular hypertrophy No previous ECG available for comparison Electronically Signed On 04-20-2022 10:47:38 EDT by Jose Raul Rodriguez
[2022-04-20 12:43] LABS: Hepatitis B Surface Antigen Non-Reactive (Negative); Hepatitis C Virus Antibody Non-Reactive (NonReactive)
[2022-04-20] MEDS: metroNIDAZOLE/NS 500 MG/100 ML 500 MG/100 ML BAG IV SCH ×2 (15:41→22:42)
[2022-04-21] MEDS: metroNIDAZOLE/NS 500 MG/100 ML 500 MG/100 ML BAG IV SCH ×2 (05:59→14:05)
[2022-04-21] MEDS: INSULIN LISPRO 100 UNIT/ML SUB-Q SCH ×3 (07:46→16:32)
[2022-04-21] MEDS ORDERED: SODIUM CHLORIDE 0.9% 100 ML IV PRN (09:02)
--- NOTE | 2022-04-21 09:05 | Progress Note ---
Assessment and Plan - Patient Problems (1) Volume overload Current Visit: Yes Status: Acute Plan to address problem: Volume optimization to ultrafiltration during dialysis treatments. Counseled patient on the importance of low-sodium diet and appropriate fluid restrictions. Will add extra sequential; UF treatment today and place her back on regular outpatient HD schedule. (2) End-stage renal disease on hemodialysis Current Visit: Yes Status: Chronic Plan to address problem: Plan for hemodialysis today to place back on TTS schedule. From nephrology standpoint she can be DC after treatment. 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 (4) Type 2 diabetes mellitus with diabetic nephropathy Current Visit: Yes Status: Chronic Plan to address problem: Diabetes managed per primary attending. Subjective Date of service: 04/21/22 Interval history: No acute issues. Objective - Vital Signs Vital signs: Vital Signs - 12hr 04/20/22 04/20/22 04/20/22 21:45 22:41 22:42 Temperature 98.8 F Pulse Rate 82 82 82 Respiratory 16 Rate Blood Pressure 189/90 189/90 189/90 O2 Sat by Pulse 100 Oximetry 04/21/22 04/21/22 05:16 07:48 Temperature 98.0 F Pulse Rate 81 Respiratory 16 20 Rate Blood Pressure 180/91 O2 Sat by Pulse 100 100 Oximetry - General Appearance General appearance: well-developed EENT: ATNC Neck: no JVD Respiratory: Present: Clear to Ascultation Cardiology: regular Gastrointestinal: normal Integumentary: no rash Neurologic: no focal deficit Musculoskeletal: deferred Psychiatric: cooperative - Lab 04/20/22 04:38 04/20/22 04:38 Most recent lab results Calcium 10.2 mg/dL (8.4-10.2) 04/20/22 04:38 Magnesium 2.20 mg/dL (1.7-2.3) 04/19/22 12:35 - Allied health notes Allied health notes reviewed: nursing Medications & Allergies - Medications Allergies/Adverse Reactions: Allergies Penicillins Adverse Reaction (Verified 04/19/22 11:06) Unknown Active Medications: Generic Name Dose Route Start Last Admin Trade Name Freq PRN Reason Stop Dose Admin Acetaminophen 650 mg 04/19/22 16:59 Acetaminophen 325 Mg Tab PO Q4H PRN Pain MILD(1-3)/Fever >100.5/ARELLANO Carvedilol 12.5 mg 04/19/22 17:00 04/20/22 22:41 Carvedilol 12.5 Mg Tab PO 12.5 mg Q12HR SAM Administration Heparin Sodium (Porcine) 5,000 unit 04/19/22 22:00 04/20/22 22:42 Heparin 5,000 Unit/1 Ml Vial SUB-Q 5,000 unit Q12HR SAM Administration Hydralazine HCl 10 mg 04/20/22 02:30 04/20/22 11:30 Hydralazine 20 Mg/1 Ml Inj IV 10 mg Q4H PRN Administration Hypertension Hydromorphone HCl 0.5 mg 04/19/22 16:59 Hydromorphone 0.5 Mg/0.5 Ml Inj IV Q3H PRN Pain , Severe (7-10) Sodium Chloride 100 mls @ 999 mls/hr 04/19/22 15:28 Nacl 0.9% IV LYDIA PRN Hypotension Metronidazole 500 mg in 100 mls @ 100 mls/hr 04/20/22 12:00 04/21/22 05:59 Flagyl 500 Mg/100 Ml IV 100 mls/hr Q8HR SAM Administration Protocol Sodium Chloride 100 mls @ 999 mls/hr 04/21/22 09:02 Nacl 0.9% IV LYDIA PRN Hypotension Insulin Human Lispro 0 unit 04/21/22 07:30 04/21/22 07:46 Insulin Lispro 100 Unit/Ml SUB-Q 3 unit ACHS SAM Administration Protocol Metoclopramide HCl 5 mg 04/20/22 08:00 Metoclopramide 10 Mg/2 Ml Inj IV Q8H PRN Nausea And Vomiting Nifedipine 90 mg 04/20/22 10:00 04/20/22 22:41 Nifedipine Xl 90 Mg Tab PO 90 mg Q12HR SAM Administration Nitroglycerin 0.4 mg 04/19/22 11:27 04/19/22 19:35 Nitroglycerin 0.4 Mg Tab Subl SL 0.4 mg .Q5MIN PRN Administration Chest Pain Ondansetron HCl 4 mg 04/19/22 16:59 Ondansetron 4 Mg/2 Ml Inj IV Q3H PRN Nausea And Vomiting Oxycodone/Acetaminophen 1 tab 04/19/22 16:59 Oxycodone /Acetaminophen 5-325mg Tab PO Q6H PRN Pain, Moderate (4-6) Sodium Chloride 10 ml 04/19/22 22:00 04/20/22 22:08 Sodium Chloride 0.9% 10 Ml Flush Syringe IV 10 ml BID SAM Administration Sodium Chloride 10 ml 04/19/22 16:59 Sodium Chloride 0.9% 10 Ml Flush Syringe IV PRN PRN LINE FLUSH Valsartan 160 mg 04/19/22 22:00 04/20/22 22:42 Valsartan 160mg Tab PO 160 mg Q12HR SAM Administration
--- NOTE | 2022-04-21 09:06 | Progress Note ---
Assessment and Plan Assessment and plan: 51-year-old female with significant past medical history of ESRD, hypertension, diabetes mellitus type 2, hyperlipidemia, COVID-19 and GERD presented through the emergency department with complaints of abdominal pain. Acute colitis. Accelerated hypertension Volume overload ESRD Elevated troponin 04/20/2022. CT scan revealed severe constipation with fecal impaction and colitis. Patient also with moderate bilateral renal cortical atrophy characteristic for chronic renal disease. We will start antibiotics for possible infectious etiology. Consult GI for further evaluation. Check stool studies. VQ scan negative for PE. Elevated troponin likely secondary to ESRD. Patient currently denying any chest pain. Consider cardiology consultation Hospitalist Physical - Constitutional Vitals: Temp Pulse Resp BP Pulse Ox 98.0 F 81 20 180/91 100 04/21/22 05:16 04/21/22 05:16 04/21/22 07:48 04/21/22 05:16 04/21/22 07:48 General appearance: Present: no acute distress, well-nourished HEART Score - HEART Score EKG: Non-specific Age: 45-65 Risk factors: > 3 risk factors or hx of atherosclerotic disease Troponin: Troponin T 0.054 ng/mL (0.00-0.029) H 04/19/22 12:35 Troponin: 1-3x normal limit - Critical Actions Critical Actions: 4-6 pts:12-16.6% risk of adverse cardiac event. Should be admitted Results - Labs CBC & Chem 7: 04/20/22 04:38 04/20/22 04:38 Labs: Laboratory Last Values WBC 5.5 K/mm3 (4.5-11.0) 04/20/22 04:38 RBC 4.33 M/mm3 (3.65-5.03) 04/20/22 04:38 Hgb 14.1 gm/dl (10.1-14.3) 04/20/22 04:38 Hct 43.7 % (30.3-42.9) H 04/20/22 04:38 MCV 101 fl (79-97) H 04/20/22 04:38 MCH 33 pg (28-32) H 04/20/22 04:38 MCHC 32 % (30-34) 04/20/22 04:38 RDW 16.9 % (13.2-15.2) H 04/20/22 04:38 Plt Count 91 K/mm3 (140-440) L 04/20/22 04:38 Lymph % (Auto) 13.1 % (13.4-35.0) L 04/20/22 04:38 [place] % (Auto) 7.1 % (0.0-7.3) 04/20/22 04:38 Eos % (Auto) 0.4 % (0.0-4.3) 04/20/22 04:38 Baso % (Auto) 0.7 % (0.0-1.8) 04/20/22 04:38 Lymph # (Auto) 0.7 K/mm3 (1.2-5.4) L 04/20/22 04:38 [place] # (Auto) 0.4 K/mm3 (0.0-0.8) 04/20/22 04:38 Eos # (Auto) 0.0 K/mm3 (0.0-0.4) 04/20/22 04:38 Baso # (Auto) 0.0 K/mm3 (0.0-0.1) 04/20/22 04:38 Seg Neutrophils % 78.7 % (40.0-70.0) H 04/20/22 04:38 Seg Neutrophils # 4.3 K/mm3 (1.8-7.7) 04/20/22 04:38 PT 17.9 Sec. (12.2-14.9) H 04/19/22 12:35 INR 1.28 (0.87-1.13) H 04/19/22 12:35 D-Dimer 231.62 ng/mlDDU (0-234) 04/19/22 12:35 Sodium 140 mmol/L (137-145) 04/20/22 04:38 Potassium 4.1 mmol/L (3.6-5.0) D 04/20/22 04:38 Chloride 94.8 mmol/L (98-107) L 04/20/22 04:38 Carbon Dioxide 27 mmol/L (22-30) 04/20/22 04:38 Anion Gap 22 mmol/L 04/20/22 04:38 BUN 50 mg/dL (7-17) H 04/20/22 04:38 Creatinine 6.7 mg/dL (0.6-1.2) H 04/20/22 04:38 Estimated GFR 8 ml/min 04/20/22 04:38 BUN/Creatinine Ratio 7 % 04/20/22 04:38 Glucose 191 mg/dL (65-100) H 04/20/22 04:38 POC Glucose 235 mg/dL (70-105) H 04/21/22 07:19 Calcium 10.2 mg/dL (8.4-10.2) 04/20/22 04:38 Magnesium 2.20 mg/dL (1.7-2.3) 04/19/22 12:35 Total Bilirubin 0.50 mg/dL (0.1-1.2) 04/20/22 04:38 AST 14 units/L (5-40) 04/20/22 04:38 ALT 9 units/L (7-56) 04/20/22 04:38 Alkaline Phosphatase 384 units/L (35-129) H 04/20/22 04:38 Total Creatine Kinase 36 units/L (30-135) 04/19/22 12:35 Troponin T 0.054 ng/mL (0.00-0.029) H 04/19/22 12:35 NT-Pro-B Natriuret Pep 43251 pg/mL (0-900) H 04/19/22 12:35 Total Protein 8.0 g/dL (6.3-8.2) 04/20/22 04:38 Albumin 4.6 g/dL (3.9-5) 04/20/22 04:38 Albumin/Globulin Ratio 1.4 % 04/20/22 04:38 Triglycerides 133 mg/dL (2-149) 04/19/22 12:35 Cholesterol 119 mg/dL (50-199) 04/19/22 12:35 LDL Cholesterol Direct 54 mg/dL (50-130) 04/19/22 12:35 HDL Cholesterol 42 mg/dL (40-59) 04/19/22 12:35 Cholesterol/HDL Ratio 2.83 % 04/19/22 12:35 SARS-CoV-2 (PCR) Negative (Negative) 04/19/22 15:35 Hepatitis A IgM Ab Non-reactive (NonReactive) 04/20/22 09:22 Hep Bs Antigen Non-reactive (Negative) 04/20/22 09:22 Hep B Core IgM Ab Non-reactive (NonReactive) 04/20/22 09:22 Hepatitis C Antibody Non-reactive (NonReactive) 04/20/22 09:22 [place]/IV: Voiding Method Bedpan Active Medications - Current Medications Current Medications: Generic Name Dose Route Start Last Admin Trade Name Freq PRN Reason Stop Dose Admin Acetaminophen 650 mg 04/19/22 16:59 Acetaminophen 325 Mg Tab PO Q4H PRN Pain MILD(1-3)/Fever >100.5/ARELLANO Carvedilol 12.5 mg 04/19/22 17:00 04/20/22 22:41 Carvedilol 12.5 Mg Tab PO 12.5 mg Q12HR SAM Administration Heparin Sodium (Porcine) 5,000 unit 04/19/22 22:00 04/20/22 22:42 Heparin 5,000 Unit/1 Ml Vial SUB-Q 5,000 unit Q12HR SAM Administration Hydralazine HCl 10 mg 04/20/22 02:30 04/20/22 11:30 Hydralazine 20 Mg/1 Ml Inj IV 10 mg Q4H PRN Administration Hypertension Hydromorphone HCl 0.5 mg 04/19/22 16:59 Hydromorphone 0.5 Mg/0.5 Ml Inj IV Q3H PRN Pain , Severe (7-10) Sodium Chloride 100 mls @ 999 mls/hr 04/19/22 15:28 Nacl 0.9% IV LYDIA PRN Hypotension Metronidazole 500 mg in 100 mls @ 100 mls/hr 04/20/22 12:00 04/21/22 05:59 Flagyl 500 Mg/100 Ml IV 100 mls/hr Q8HR SAM Administration Protocol Insulin Human Lispro 0 unit 04/21/22 07:30 04/21/22 07:46 Insulin Lispro 100 Unit/Ml SUB-Q 3 unit ACHS SAM Administration Protocol Metoclopramide HCl 5 mg 04/20/22 08:00 Metoclopramide 10 Mg/2 Ml Inj IV Q8H PRN Nausea And Vomiting Nifedipine 90 mg 04/20/22 10:00 04/20/22 22:41 Nifedipine Xl 90 Mg Tab PO 90 mg Q12HR SAM Administration Nitroglycerin 0.4 mg 04/19/22 11:27 04/19/22 19:35 Nitroglycerin 0.4 Mg Tab Subl SL 0.4 mg .Q5MIN PRN Administration Chest Pain Ondansetron HCl 4 mg 04/19/22 16:59 Ondansetron 4 Mg/2 Ml Inj IV Q3H PRN Nausea And Vomiting Oxycodone/Acetaminophen 1 tab 04/19/22 16:59 Oxycodone /Acetaminophen 5-325mg Tab PO Q6H PRN Pain, Moderate (4-6) Sodium Chloride 10 ml 04/19/22 22:00 04/20/22 22:08 Sodium Chloride 0.9% 10 Ml Flush Syringe IV 10 ml BID SAM Administration Sodium Chloride 10 ml 04/19/22 16:59 Sodium Chloride 0.9% 10 Ml Flush Syringe IV PRN PRN LINE FLUSH Valsartan 160 mg 04/19/22 22:00 04/20/22 22:42 Valsartan 160mg Tab PO 160 mg Q12HR SAM Administration
[2022-04-21] MEDS: NIFEdipine XL 90 MG TAB PO SCH (09:36)
[2022-04-21] MEDS: carvediloL 12.5 MG TAB PO SCH (09:36)
[2022-04-21] MEDS: HEPARIN 5,000 UNIT/1 ML VIAL SUB-Q SCH (09:37)
[2022-04-21] MEDS: VALSARTAN 160MG TAB PO SCH (09:42)
[2022-04-21 13:53] VITALS: BP 151/89
--- NOTE | 2022-04-21 14:22 | Discharge Summary ---
Providers - Providers Date of Admission: 04/19/22 16:59 Date of discharge: 04/21/22 Attending physician: GURJIT LEONE 04/19/22 13:25 Consult to Physician [CONS] Urgent Comment: Consulting Provider: ALMA POON Physician Instructions: Reason For Exam: esrd Primary care physician: [employer] DEVELOPMENT SPECIALIST Hospitalization Reason for admission: Abdominal pain and worsening shortness of breath Condition: Fair Pertinent studies: CT abdomen and pelvis Chest x-ray VQ scan Chest CT Hospital course: --Hypertensive emergency; present on admission now resolved Patient initiated on valsartan 160 every 12, Procardia XL 90 mg and Coreg. Also IV hydralazine 10 mg every 3 hours as needed. Patient does not need Cardene drip at this point. Patient is noncompliant. Compliance issues counseled. -- Volume overload Needs emergent hemodialysis for increased ultrafiltration. Nephrology consulted. -- Elevated brain natriuretic peptide (BNP) level Secondary to volume overload -- Chronic constipation --End-stage renal disease on hemodialysis Continue hemodialysis as per schedule. Nephrology consulted. -- Elevated troponin NSTEMI II Troponin leak --DVT prophylaxis On anticoagulation and GI prophylaxis --Advance care planning Disease education conducted, care plan discussed, diagnosis discussed. Patient is full code. Patient acknowledges understanding and agreement with care plan. +30 minutes Disposition: HOME / SELF CARE / HOMELESS Final Discharge Diagnosis (Prints w/discharge instructions): Hypertensive emergency present on admission/now resolved. Volume overload; due to end-stage renal disease. Elevated BNP secondary to volume overload. Chronic consti pation. End-stage renal disease on hemodialysis. Nonspecific elevation of troponin Time spent for discharge: 35 min Core Measure Documentation - Palliative Care Palliative Care/ Comfort Measures: Not Applicable - Core Measures Any of the following diagnoses?: none Exam - Constitutional Vitals: Temp Pulse Resp BP Pulse Ox 97.6 F 73 17 151/89 100 04/21/22 13:30 04/21/22 13:30 04/21/22 13:30 04/21/22 13:30 04/21/22 13:30 General appearance: Present: no acute distress, well-nourished - EENT Eyes: Present: PERRL, EOM intact - Neck Neck: Present: supple, normal ROM - Respiratory Respiratory effort: normal Respiratory: bilateral: diminished, negative: rales, rhonchi, wheezing - Cardiovascular Rhythm: regular Heart Sounds: Present: S1 & S2 - Extremities Extremities: no ischemia, No edema - Abdominal General gastrointestinal: Present: soft, non-tender, non-distended, normal bowel sounds - Integumentary Integumentary: Present: clear, warm - Musculoskeletal Musculoskeletal: strength equal bilaterally, generalized weakness - Psychiatric Psychiatric: appropriate mood/affect, cooperative - Neurologic Neurologic: CNII-XII intact, moves all extremities Plan Activity: advance as tolerated, fall precautions Diet: renal Additional Instructions: If you have worsening symptoms contact MD or go to the nearest emergency room as needed. Advised to see nephrology/hemodialysis per schedule TTS[Wednesday, and Wednesday] Follow up with: PRIMARY CARE, [Primary Care Provider] - 3-5 Days MATI LOPEZ DO [Staff Physician] - 7 Days Prescriptions: carvediloL [Coreg] 12.5 mg PO Q12HR #60 tablet Valsartan [Diovan] 160 mg PO Q12HR #60 tablet bisacodyL [Dulcolax] 10 mg PO DAILY PRN #14 tab PRN Reason: Constipation metroNIDAZOLE [Flagyl] 500 mg PO Q8HR #21 tablet NIFEdipine XL [Procardia Xl] 90 mg PO Q12HR #60 tablet
[2022-04-21] MEDS ORDERED: MAGNESIUM HYDROXIDE (MOM) ORAL LIQD UDC PO NR (14:30)
== END 2022-04-21 20:10 | DRG 280 ==
LOC: ED 11:04 → 3A 16:59
PROVIDERS: ADMIT Internal Medicine; ATTEND Internal Medicine
PROC: 5A1D80Z Performance of Urinary Filtration, Prolonged Intermittent, 6-18 hours Per Day (ICD-10-PCS; principal; 2022-04-20)
PROC: 5A1D80Z Performance of Urinary Filtration, Prolonged Intermittent, 6-18 hours Per Day (ICD-10-PCS; 2022-04-21)
DX: I16.1 Hypertensive emergency (principal); N18.6 End stage renal disease; I21.A1 Myocardial infarction type 2; J96.01 Acute respiratory failure with hypoxia; E87.70 Fluid overload, unspecified; Z20.822 Contact with and (suspected) exposure to COVID-19; E78.5 Hyperlipidemia, unspecified; K21.9 Gastro-esophageal reflux disease without esophagitis; Z86.73 Personal history of transient ischemic attack (TIA), and cerebral infarction without residual deficits; Z99.2 Dependence on renal dialysis; E11.22 Type 2 diabetes mellitus with diabetic chronic kidney disease; I12.0 Hypertensive chronic kidney disease with stage 5 chronic kidney disease or end stage renal disease; Z82.49 Family history of ischemic heart disease and other diseases of the circulatory system; K52.9 Noninfective gastroenteritis and colitis, unspecified; Z88.0 Allergy status to penicillin
CPT/HCPCS: 36415; 71045; 71260; 74177; 78580; 80053; 80061; 80074; 82550; 82962; 83735; 83880; 84484; 85025; 85379; 85610; 93005; 94760; G0378; J3490; J7517; Q9967; A9540; C9113; J0360; J1644; J1815; J2270; J2765; U0003